=== PATIENT | male | born 1955 | race Caucasian/White ===

== ENCOUNTER 2016-09-05 18:18 | Observation (INO) | payer OTHER ==
[~2016-09-05] VITALS: Ht 177.8 cm; Wt 108.0 kg
--- NOTE | 2016-09-05 19:56 | DIAGNOSTIC IMAGING REPORT ---
PROCEDURE: CT HEAD WITHOUT CONTRAST INDICATION: SLURRED SPEECH AND CONCENTRATION PROBLEMS FOR 2 -3 DAYS TECHNIQUE: Noncontrast axial images with sagittal and coronal reformations. COMPARISON: None. FINDINGS: There is a 1.3 cm low density area in the right anterior thalamus with mild mass effect. The rest of the brain and ventricles are normal. No evidence of hemorrhage. Sinuses and mastoids are normal. IMPRESSION: 1. There is 1.3 cm low density area in the right anterior thalamus most compatible with an acute or subacute infarct. 2. Otherwise negative head CT. 2. Findings discussed with Dr. Shaheen Ding at [address] scans at this facility use dose modulation, iterative reconstruction, and/or weight-based dosing when appropriate to reduce radiation dose to as low as reasonably achievable.
--- NOTE | 2016-09-05 20:54 | ED NURSING NOTES ---
Clinical Report - Nurses [facility] [address] [place] [address] 09/05/2016 18:18 Patient: SONALI COATES TRIAGE Triage time 18:24 Sep 05 2016. Acuity: LEVEL 2. Chief Complaint: DIZZINESS. Alert. No acute distress. DADA COMA SCORE: Dada Coma Scale: 15- eyes open spontaneously (4); best verbal response- oriented x 4 (5); best motor response- obeys commands (6). --18:30 Christiane Shepherd R.N. 18:24 09/05/16. BP: 150/71. HR: 76. RR: 18. O2 saturation: 99%. Temp: 98.3 F. Pain level now 0/10. --18:30 Christiane Shepherd R.N. Weight: 104.3 kg stated. Height/Length: 70 inches Per Patient. BMI: 33. --18:22 Christiane Shepherd R.N. Medications Allopurinol Oral (gout). --18:28 Christiane Shepherd R.N. Ibuprofen Oral, as needed (for arthitis). --18:28 Christiane Shepherd R.N. Medication/allergy information source: the patient. --18:30 Christiane Shepherd R.N. Allergies No Known Drug Allergy. --22:46 Christiane Shepherd R.N. History Arrived by private vehicle. Historian: spouse and patient. Accompanied by spouse. Primary physician (Dr. Anderson). ( brought her in to be seen because since Sunday he has been "not acting right". "he's more tired, speech is slurred at times, unsteady with walking, tripping at times".). This started since Sunday. Patient was last known well (Sunday). He has had trouble walking. Treatment MEDICAL SCIENTIFIC LIAISON: None. SOCIAL HX: Never smoker. Occasional alcohol use. No drug use. No infectious disease exposure. FALL RISK ASSESSMENT: Fall risk assessment completed. No fall risk identified. NUTRITIONAL RISK ASSESSMENT: The nutritional risk assessment revealed no deficiencies. FUNCTIONAL ASSESSMENT: Functional assessment: no impairments noted. LEARNING NEEDS ASSESSMENT: The learning needs assessment revealed no barriers. SKIN INTEGRITY ASSESSMENT: Skin integrity risk assessment completed. No skin integrity risk identified. --18:30 Christiane Shepherd R.N. PROBLEMS: Gout. --18:29 Christiane Shepherd R.N. ADDITIONAL SURGERIES: Appendectomy. Knee Surgery. --18:29 Christiane Shepherd R.N. Interventions ID band on patient. To room. --18:30 Christiane Shepherd R.N. PHYSICAL ASSESSMENT Ambulatory to room. GENERAL / NEURO / PSYCH: Oriented X 4. Appears in no acute distress. Speech within normal limits. HEENT: No facial asymmetry noted. Pupils equal, round and reactive to light. RESPIRATORY: Respirations not labored. CVS: Cardiac rhythm: normal sinus rhythm. Capillary refill less than 2 seconds. SKIN: Skin is warm and dry. --19:09 Christiane Shepherd R.N. GENERAL / NEURO / PSYCH: NIH Stroke Scale: score 1. Performed at 21:15. Level of Consciousness: drowsy (1). LOC Questions: both (0). LOC Commands: both (0). Best gaze: normal (0). Visual field loss: none (0). Facial palsy: normal (0). Motor arm: no drift right arm (0) and no drift left arm (0). Motor leg: no drift right leg (0) and no drift left leg (0). Limb ataxia: none (0). Sensory loss: none (0). Aphasia: none (0). Dysarthria: normal (0). Extinction and inattention: none (0). --21:15 Christiane Shepherd R.N. GENERAL / NEURO / PSYCH: ( falls asleep during conversation with .). --21:15 Christiane Shepherd R.N. NURSING PROGRESS NOTES cardiac monitor technician, pulse oximeter and NIBP monitor placed on patient; cardiac monitor technician- Lead II. Patient gowned. Reassurance given. Patient ready for evaluation- ED physician notified. --18:30 Christiane Shepherd R.N. 18:35 09/05/2016 Site #1 started via IV in the right antecubital space with an 20g angiocath; one attempt. Blood drawn: rainbow set. Labeled in the presence of the patient and sent to the lab. --18:35 Christiane Shepherd R.N. EKG time: (1831). EKG was ordered, performed by a tech and shown to the ED physician. --18:38 Olamide Michel ER Tech1 ( 18:35 Provider at bedside.). --18:47 Christiane Shepherd R.N. Patient waiting for lab results. --19:09 Christiane Shepherd R.N. 19:08 09/05/16. BP: 150/68. HR: 70. RR: 18. O2 saturation: 98%. Pain level now 0/10. --19:09 Christiane Shepherd R.N. ( Pt road tested to CT with tech. Gait steady, just walking slow. pilot supervisor brought pt back to room, spoke with RN and stated pt "seemed confused". Pt assisted to the bathroom, provided a urine specimen.). --19:56 Christiane Shepherd R.N. ( Pt and informed that he has had a stroke, right side, non hemorrhagic. It has been decided that pt will agree to be admitted tonight. Pt did not have any questions or a response to this news. asked a lot of questions and saw the CT scan.). --21:10 Christiane Shepherd R.N. 21:14 09/05/16. BP: 111/92. HR: 78. RR: 18. O2 saturation: 97%. Pain level now 0/10. --21:14 Christiane Shepherd R.N. Cardiac rhythm: normal sinus rhythm. --21:14 Christiane Shepherd R.N. ( house sup infomred of pt's stay.). --21:16 Christiane Shepherd R.N. 21:17 09/05/2016 Aspirin PO 325 mg given. Allergies verified and confirmed 5 rights. --21:17 Christiane Shepherd R.N. DISPOSITION / DISCHARGE Condition at departure: stable. Admitted to Acute Care. Report was given to a nurse. Report included patient's care, treatment, medications, reviewed medication reconcilliation, and condition (including any recent changes or anticipated changes). All questions were answered. Report was acknowledged. (RN). --21:54 Christiane Shepherd R.N. Report was given. (Cat, RN). --22:14 Christiane Shepherd R.N. 22:45 09/05/16. BP: 137/55. HR: 78. RR: 18. O2 saturation: 100%. Pain level now 0/10. --22:46 Christiane Shepherd R.N. Locked/Released at 09/05/2016 22:47 by Christiane Shepherd R.N.
--- NOTE | 2016-09-05 20:54 | ED CLINICAL REPORT ---
Clinical Report - Physicians/Mid Levels [facility] [address] [place] [address] 09/05/2016 18:18 Patient: SONALI COATES Arrived- By private vehicle. Historian- patient. HISTORY OF PRESENT ILLNESS Chief Complaint: confusion. The patient has had difficulty with speech (slight slurring of speech). No visual disturbance, impaired swallowing or recent fall. He has had difficulty walking (possible leg drop on the left). This started 2 days ago, patient was last known well (2 days ago) and is still present (staying the same). It was abrupt in onset and has been constant but is not gone now. At its maximum deficit described as mild. No dizziness, seizure or blackouts. Usually is alert and oriented X3 and has normal mobility. Similar symptoms previously: None. Recent medical care: Not recently seen/assessed. REVIEW OF SYSTEMS No chest pain or difficulty breathing. All systems otherwise negative, except as recorded above. PAST HISTORY See nurses notes. SOCIAL HISTORY Never smoker. Occasional alcohol use. No drug use. Is a local resident. FAMILY HISTORY (father with "heart attack" at 58 years of age). ADDITIONAL NOTES The nursing notes have been reviewed. PHYSICAL EXAM Vital Signs: 09/05/2016 18:24 BP: 150/71. HR: 76. RR: 18. O2 saturation: 99%. Temp: 98.3 F. Hypertensive. Oxygen saturation normal. Appearance: Alert. No acute distress. Head: Head atraumatic. Eyes: Pupils equal, round and reactive to light. Pupillary exam: Right pupil 3mm, round and reactive to light directly and consensually and with accommodation. Left pupil: 3mm, round and reactive to light directly and consensually and with accommodation. ENT: Normal ENT inspection. Airway intact. Pharynx normal. Neck: Normal inspection. Neck supple. CVS: Normal heart rate and rhythm. Heart sounds normal. Pulses normal. Respiratory: No respiratory distress. Breath sounds normal. Abdomen: Soft and nontender. No organomegaly. Skin: Skin warm and dry. Normal skin color. No rash. Normal skin turgor. Extremities: Extremities exhibit normal ROM. No lower extremity edema. Neuro: Alert. Oriented X 3. No alteration in mental status. Not disoriented. Alertness is not decreased. No aphasia. Mood/affect normal. Speech normal. No dysphasia or dysarthria. Cranial nerves normal (as tested). No cerebellar findings. No abnormal finger-nose test. Normal gait. No motor deficit. No weakness. No sensory deficit. No pronator drift. LABS, X-RAYS, AND EKG EKG: No acute process. No acute ischemia. Normal EKG. Normal sinus rhythm. Rate: 72. Normal P waves. Normal MITCH. Normal QRS complex. Normal axis. Normal ST and T waves, QT and QTc. The study has been interpreted contemporaneously. The study has been independently viewed by me. The EKG appears to be a good tracing. CT Head: (PROCEDURE: CT HEAD WITHOUT CONTRAST INDICATION: SLURRED SPEECH AND CONCENTRATION PROBLEMS FOR 2 -3 DAYS TECHNIQUE: Noncontrast axial images with sagittal and coronal reformations. COMPARISON: None. FINDINGS: There is a 1.3 cm low density area in the right anterior thalamus with mild mass effect. The rest of the brain and ventricles are normal. No evidence of hemorrhage. Sinuses and mastoids are normal. IMPRESSION: 1. There is 1.3 cm low density area in the right anterior thalamus most compatible with an acute or subacute infarct. 2. Otherwise negative head CT.). Laboratory Tests: UA-Culture if indicated: (HUGO: 09/05/2016 19:45) ( MsgRcvd 09/05/2016 20:10) Final results Test Result Flag Units (Reference) URINE COLOR YELLOW URINE APPEARANCE CLEAR URINE GLUCOSE NEGATIVE (NEGATIVE) URINE BILIRUBIN NEGATIVE (NEGATIVE) URINE KETONE NEGATIVE (NEGATIVE) URINE SPECIFIC GRAVITY 1.025 (1.010-1.030) URINE PH 6.0 (5.0-8.0) URINE PROTEIN NEGATIVE (NEGATIVE) URINE UROBILINOGEN 1.0 EU/dL (0.2-1.0) URINE NITRITE NEGATIVE (NEGATIVE) URINE BLOOD NEGATIVE (NEGATIVE) URINE LEUK ESTERASE NEGATIVE (NEGATIVE) URINE RBC NONE SEEN rbc/hpf (0-1) URINE WBC RARE wbc/hpf (0-1) URINE EPITHELIAL CELLS RARE EPI/hpf (0-5) URINE BACTERIA NONE SEEN (NONE SEEN) URINE COMMENT CULT NOT INDICATED URINE CULTURES ARE SET-UP BASED ON THE FOLLOWING CRITERIA:POSITIVE NITRITEPOSITIVE LEUKOCYTE ESTERASEGREATER THAN 10 WHITE BLOOD CELLSMODERATE (2+) OR GREATER BACTERIA CBC w Diff: (HUGO: 09/05/2016 18:30) ( [facility] 09/05/2016 19:05) Final results Test Result Flag Units (Reference) WHITE BLOOD COUNT 6.6 K/uL (4.5-11.5) RED BLOOD COUNT 5.09 M/uL (4.50-5.90) HEMOGLOBIN 15.7 gm/dL (13.5-17.5) HEMATOCRIT 45.4 % (41.0-53.0) MEAN CELL VOLUME 89 fL (80-100) MEAN CORPUSCULAR HGB 31 pg (26-34) MEAN CORPUSCULAR HGB CONC 35 g/dL (31-37) RED CELL DISTRIBUTION WIDTH 13.7 % (11.6-14.8) PLATELET COUNT 198 K/uL (150-400) NEUTROPHIL % 68.7 % (50-75) LYMPH % 20.8 L % (25-40) MONO % 7.1 % (3-14) EOSINOPHIL % 2.7 % (0-4) BASOPHIL % 0.7 % (0-2) PT with INR: (HUGO: 09/05/2016 18:30) ( [facility] 09/05/2016 19:08) Final results Test Result Flag Units (Reference) INR 0.9 (0.8-1.2) Low Intensity Therapy: INR 1.5-2.0 PT range 18.5-23.1Mod.Intensity Therapy: INR 2.0-3.0 PT range 23.1-31.5High Intensity Therapy: INR 2.5-3.5 PT range 27.4-35.5High Intensity Therapy 2: INR 3.0-4.0 PT range 31.5-39.3 Urine Drug Screen: (HUGO: 09/05/2016 19:45) ( [facility] 09/05/2016 20:22) Final results Test Result Flag Units (Reference) AMPHETAMINE/METHAMPHETAMINE NEGATIVE (NEGATIVE) BARBITURATE NEGATIVE (NEGATIVE) BENZODIAZEPINE NEGATIVE (NEGATIVE) CANNABINOID NEGATIVE (NEGATIVE) COCAINE NEGATIVE (NEGATIVE) ECSTASY NEGATIVE (NEGATIVE) METHADONE NEGATIVE (NEGATIVE) OPIATE NEGATIVE (NEGATIVE) The urine drug screen is a qualitative screening test fordrug overdose and abuse. All screen results should beconsidered as presumptive.Drugs screened for are as follows:BenzodiazepinesCocaineAmphetamines/MetamphetaminesTHC (Tetrahydrocannabinol)OpiatesBarbituratesEcstasyMethadonePositive results are unconfirmed. For confirmation, notifythe lab for the specimen to be sent to the reference lab.All confirmations must be performed by a differentmethodology.The ingestion of natural herbal and plant productscontaining Ephedra/Ephedra metabolites can produce in urineone or more substances capable of cross reacting withamphetamine/methamphetamine immunoassays. These testsprovide a preliminary result only. A more specificalternative chemical method must be used to obtain aconfirmed analytical result. CMP: (HUGO: 09/05/2016 18:30) ( MsgRcvd 09/05/2016 19:52) Final results Test Result Flag Units (Reference) THYROID STIMULATING HORMONE 1.400 uIU/mL (0.30-3.74) GLUCOSE 121 H mg/dL (70-110) BUN 19 H mg/dL (7-18) CREATININE 1.1 mg/dL (0.6-1.3) Estimated GFR >60 mL/min Estimated GFR- >60 mL/min Note: Persistent reduction over 3 months in eGFR<60 mL/min/1.73 m2 defines CKD. Patients with eGFR values>=60 mL/min/1.73 m2 may also have CKD if evidence ofpersistent proteinuria. Additional information may be foundat www.kidney.org. SODIUM 143 mmol/L (136-145) POTASSIUM 4.4 mmol/L (3.5-5.1) CHLORIDE 106 mmol/L (98-107) CARBON DIOXIDE 27 mmol/L (21-32) CALCIUM 8.8 mg/dL (8.5-10.1) TOTAL PROTEIN 6.9 g/dL (6.4-8.2) ALBUMIN 3.6 g/dL (3.3-5.0) BILIRUBIN, TOTAL 0.5 mg/dL (0.0-1.0) ALKALINE PHOSPHATASE 142 H U/L (46-116) AST (SGOT) 21 U/L (15-37) ALT (SGPT) 38.4 U/L (12-78) . PROGRESS AND PROCEDURES Course of Care: the patient is a pleasant 61-year-old female with past medical history significant for possiblehyperlipidemia presenting for evaluation of confusion andpossibly left foot drop. The patient has no focal neurological examination findingshowever patient's story is somewhat concerning for CVA. Patient will be evaluated with CT scan of the head including laboratory studies. Patient is agreeable to treatment plan. EKG is also been ordered for further evaluation of potential be cardioembolic type of stroke. Patient's CT scan of the head his noted for the findings above. Patientwas counseled in regards to this. Patient will likely need to be admitted to the hospital. Auditory studies have beenordered and are currently pending. We are notified about labhaving difficulty with the patient's blood draw as he is noted to be lipemic. Laboratorywe'll send us the results as soon as they are available. Laboratory studies were significant for the findings above. No other acute abnormalities noted. Had long discussion with patient in regards to admission to the hospital. Patient is agreeable to being monitored and having the workup for acute CVA performed here in the hospital. Spoke to the hospitalist who will accept the patientbut did offerhaving the patient's a stroke evaluation performed as an outpatient. Had a discussion patient in regards to workup as an outpatient. Because of the risks and benefits of doing theworkup as an outpatient versus inpatient, patient agreed to being admitted to the hospital to have the evaluation performed on an inpatient basis. Believe that this is the appropriate plan of care for the patient. Because of the patient's documented new-onset of CVA, patient is not a good outpatient candidate. Discussed with patient workup, diagnosis, and plan of care. All questions have been answered. Patient has been stable throughout his stay here in the emergency department. No other acute abnormalities noted. Patient will be admitted. Prior to patient's departure from the emergency department he is noted to be in theusual state of hisfrom his initial presentation. I also did have a discussion with the patient in regards to TPA and how he is currently not a candidate for this medication. Also discussed with patient said [place] ofCVA and possible outcomes fromthis incidenthere in the emergency department. Encouraged patient tocomply with cholesterol-lowering medications to reduce his future risk of CVA. Critical care performed (60 minutes). Time is exclusive of separately billable procedures. Time includes: direct patient care, patient reassessment, coordination of patient care, interpretation of data (laboratory data), review of patient's medical records, medical consultation, family consultation regarding treatment decisions and documentation of patient care. CLINICAL IMPRESSION acute cerebrovascular accident of the right thalamus hypercholesterolemia. (Electronically signed by Shaheen Ding Dr. 09/10/2016 16:12)
--- NOTE | 2016-09-05 20:54 | ED ORDER SUMMARY ---
..... Patient: SONALI COATES OrderSheet [facility] VisitID: [id number] [address] [place] [address] 61y, M Registration Date/Time: 09/05/2016 ORDER SHEET Weight: 104.3 kg (stated) Allergies: No Known Drug Allergy GENERAL ORDERS: EKG - ER Stat (18:34 09/05/2016 TITOalde R.NIris per protocol) (18:35 LNations ER Tech1) Pork Cutlet Maker (Continuous) (altered mental status) (18:46 09/05/2016 Zeus Magaña) (18:50 SBalde R.N.) CBC w Diff Urgent (18:47 09/05/2016 Zeus Magaña) (Ack 18:53 LNations ER Tech1) (20:00 SRedmond) CMP Urgent (18:47 09/05/2016 Zeus Magaña) (Ack 18:53 LNations ER Tech1) (20:00 SRedmond) UA-Culture if indicated Urgent (18:47 09/05/2016 Zeus Magaña) (Ack 18:53 LNations ER Tech1) (20:00 SRedmond) PT with INR Urgent (18:47 09/05/2016 Zeus Magaña) (Ack 18:53 LNations ER Tech1) (20:01 SRedmond) TSH Urgent (18:47 09/05/2016 Zeus Magaña) (Ack 18:54 LNations ER Tech1) (20:17 ALawrence ER Tech1) Pulse oximeter (18:47 09/05/2016 Zeus Magaña) (18:50 SBalde R.N.) CT Head wo Cont Urgent (19:25 09/05/2016 Zeus Magaña) (Ack 19:29 SRedmond) (19:47 MCampbell) Urine Drug Screen Urgent (19:56 09/05/2016 Zeus Magaña) (Ack 19:59 SRedmond) (20:00 SRedmond) MEDICATION ORDERS: Aspirin PO 325 mg (Do not crush or chew, NOW) (21:11 09/05/2016 Zeus Magaña) (21:17 SBalde R.N.) IV FLUIDS: IV Saline Lock (18:47 09/05/2016 Zeus Magaña) (18:50 Laura Tirado) ORDER SHEET NOTES: [Electronically signed by Christiane Shepherd R.N. (22:47 09/05/2016)] [Electronically signed by Shaheen Ding Dr. (16:12 09/10/2016)] [Electronically locked/signed by Christiane Shepherd R.N. (22:47 09/05/2016)]
--- NOTE | 2016-09-05 20:54 | ED NURSING NOTES ---
Clinical Report - [facility] [address] [place] [address] 09/05/2016 18:18 Patient: SONALI COATES TRIAGE Triage time 18:24 Sep 05 2016. Acuity: LEVEL 2. Chief Complaint: DIZZINESS. Alert. No acute distress. DADA COMA SCORE: Dada Coma Scale: 15- eyes open spontaneously (4); best verbal response- oriented x 4 (5); best motor response- obeys commands (6). --18:30 Christiane Shepherd R.N. 18:24 09/05/16. BP: 150/71. HR: 76. RR: 18. O2 saturation: 99%. Temp: 98.3 F. Pain level now 0/10. --18:30 Christiane Shepherd R.N. Weight: 104.3 kg stated. Height/Length: 70 inches Per Patient. BMI: 33. --18:22 Christiane Shepherd R.N. Medications Allopurinol Oral (gout). --18:28 Christiane Shepherd R.N. Ibuprofen Oral, as needed (for arthitis). --18:28 Christiane Shepherd R.N. Medication/allergy information source: the patient. --18:30 Christiane Shepherd R.N. Allergies No Known Drug Allergy. --22:46 Christiane Shepherd R.N. History Arrived by private vehicle. Historian: spouse and patient. Accompanied by spouse. Primary physician (Dr. Anderson). ( brought her in to be seen because since Sunday he has been "not acting right". "he's more tired, speech is slurred at times, unsteady with walking, tripping at times".). This started since Sunday. Patient was last known well (Sunday). He has had trouble walking. Treatment COOPERAGE SHOP SUPERVISOR: None. SOCIAL HX: Never smoker. Occasional alcohol use. No drug use. No infectious disease exposure. FALL RISK ASSESSMENT: Fall risk assessment completed. No fall risk identified. NUTRITIONAL RISK ASSESSMENT: The nutritional risk assessment revealed no deficiencies. FUNCTIONAL ASSESSMENT: Functional assessment: no impairments noted. LEARNING NEEDS ASSESSMENT: The learning needs assessment revealed no barriers. SKIN INTEGRITY ASSESSMENT: Skin integrity risk assessment completed. No skin integrity risk identified. --18:30 Christiane Shepherd R.N. PROBLEMS: Gout. --18:29 Christiane Shepherd R.N. ADDITIONAL SURGERIES: Appendectomy. Knee Surgery. --18:29 Christiane Shepherd R.N. Interventions ID band on patient. To room. --18:30 Christiane Shepherd R.N. PHYSICAL ASSESSMENT Ambulatory to room. GENERAL / NEURO / PSYCH: Oriented X 4. Appears in no acute distress. Speech within normal limits. HEENT: No facial asymmetry noted. Pupils equal, round and reactive to light. RESPIRATORY: Respirations not labored. CVS: Cardiac rhythm: normal sinus rhythm. Capillary refill less than 2 seconds. SKIN: Skin is warm and dry. --19:09 Christiane Shepherd R.N. GENERAL / NEURO / PSYCH: NIH Stroke Scale: score 1. Performed at 21:15. Level of Consciousness: drowsy (1). LOC Questions: both (0). LOC Commands: both (0). Best gaze: normal (0). Visual field loss: none (0). Facial palsy: normal (0). Motor arm: no drift right arm (0) and no drift left arm (0). Motor leg: no drift right leg (0) and no drift left leg (0). Limb ataxia: none (0). Sensory loss: none (0). Aphasia: none (0). Dysarthria: normal (0). Extinction and inattention: none (0). --21:15 Christiane Shepherd R.N. GENERAL / NEURO / PSYCH: ( falls asleep during conversation with .). --21:15 Christiane Shepherd R.N. NURSING PROGRESS NOTES mud jack operator, pulse oximeter and NIBP monitor placed on patient; cost report clerk- Lead II. Patient gowned. Reassurance given. Patient ready for evaluation- ED physician notified. --18:30 Christiane Shepherd R.N. 18:35 09/05/2016 Site #1 started via IV in the right antecubital space with an 20g angiocath; one attempt. Blood drawn: rainbow set. Labeled in the presence of the patient and sent to the lab. --18:35 Christiane Shepherd R.N. EKG time: (1831). EKG was ordered, performed by a tech and shown to the ED physician. --18:38 Olamide Michel ER Tech1 ( 18:35 Provider at bedside.). --18:47 Christiane Shepherd R.N. Patient waiting for lab results. --19:09 Christiane Shepherd R.N. 19:08 09/05/16. BP: 150/68. HR: 70. RR: 18. O2 saturation: 98%. Pain level now 0/10. --19:09 Christiane Shepherd R.N. ( Pt road tested to CT with tech. Gait steady, just walking slow. cyber incident handler brought pt back to room, spoke with RN and stated pt "seemed confused". Pt assisted to the bathroom, provided a urine specimen.). --19:56 Christiane Shepherd R.N. ( Pt and informed that he has had a stroke, right side, non hemorrhagic. It has been decided that pt will agree to be admitted tonight. Pt did not have any questions or a response to this news. asked a lot of questions and saw the CT scan.). --21:10 Christiane Shepherd R.N. 21:14 09/05/16. BP: 111/92. HR: 78. RR: 18. O2 saturation: 97%. Pain level now 0/10. --21:14 Christiane Shepherd R.N. Cardiac rhythm: normal sinus rhythm. --21:14 Christiane Shepherd R.N. ( house sup infomred of pt's stay.). --21:16 Christiane Shepherd R.N. 21:17 09/05/2016 Aspirin PO 325 mg given. Allergies verified and confirmed 5 rights. --21:17 Christiane Shepherd R.N. DISPOSITION / DISCHARGE Condition at departure: stable. Admitted to Acute Care. Report was given to a nurse. Report included patient's care, treatment, medications, reviewed medication reconcilliation, and condition (including any recent changes or anticipated changes). All questions were answered. Report was acknowledged. (RN). --21:54 Christiane Shepherd R.N. Report was given. (Cat, RN). --22:14 Christiane Shepherd R.N. 22:45 09/05/16. BP: 137/55. HR: 78. RR: 18. O2 saturation: 100%. Pain level now 0/10. --22:46 Christiane Shepherd R.N. Locked/Released at 09/05/2016 22:47 by Christiane Shepherd R.N.
--- NOTE | 2016-09-05 20:54 | ED ORDER SUMMARY ---
..... Patient: SONALI COATES OrderSheet [facility] VisitID: [id number] [address] [place] [address] 61y, M Registration Date/Time: 09/05/2016 ORDER SHEET Weight: 104.3 kg (stated) Allergies: No Known Drug Allergy GENERAL ORDERS: EKG - ER Stat (18:34 09/05/2016 TITOalde R.NIris per protocol) (18:35 LNations ER Tech1) Binding Cementer French Cord (Continuous) (altered mental status) (18:46 09/05/2016 Zeus Magaña) (18:50 SBalde R.N.) CBC w Diff Urgent (18:47 09/05/2016 Zeus Magaña) (Ack 18:53 LNations ER Tech1) (20:00 SRedmond) CMP Urgent (18:47 09/05/2016 Zeus Magaña) (Ack 18:53 LNations ER Tech1) (20:00 SRedmond) UA-Culture if indicated Urgent (18:47 09/05/2016 Zeus Magaña) (Ack 18:53 LNations ER Tech1) (20:00 SRedmond) PT with INR Urgent (18:47 09/05/2016 Zeus Magaña) (Ack 18:53 LNations ER Tech1) (20:01 SRedmond) TSH Urgent (18:47 09/05/2016 Zeus Magaña) (Ack 18:54 LNations ER Tech1) (20:17 ALawrence ER Tech1) Pulse oximeter (18:47 09/05/2016 Zeus Magaña) (18:50 SBalde R.N.) CT Head wo Cont Urgent (19:25 09/05/2016 Zeus Magaña) (Ack 19:29 SRedmond) (19:47 MCampbell) Urine Drug Screen Urgent (19:56 09/05/2016 Zeus Magaña) (Ack 19:59 SRedmond) (20:00 SRedmond) MEDICATION ORDERS: Aspirin PO 325 mg (Do not crush or chew, NOW) (21:11 09/05/2016 Zeus Magaña) (21:17 SBalde R.N.) IV FLUIDS: IV Saline Lock (18:47 09/05/2016 Zeus Magaña) (18:50 Laura Tirado) ORDER SHEET NOTES: [Electronically signed by Christiane Shepherd R.N. (22:47 09/05/2016)] [Electronically signed by Shaheen Ding Dr. (16:12 09/10/2016)] [Electronically locked/signed by Christiane Shepherd R.N. (22:47 09/05/2016)]
[2016-09-05 22:56] VITALS: BP 155/95
--- NOTE | 2016-09-05 23:59 | HISTORY AND PHYSICAL ---
ADMITTED: 09/05/2016 PRIMARY CARE PHYSICIAN: Sandro Anderson MD CHIEF COMPLAINT: 1. Fatigue, slurred speech, weak, discoordinated left arm and left lower extremity HISTORY OF PRESENT ILLNESS: This is a 61-year-old male with history of dyslipidemia, presenting to the hospital with complaints of 3-4 days of fatigue and tiredness, 2 days of slurred speech and left hand discoordination and left foot weakness. The patient states that he started getting extremely fatigued and tired on Sunday, but thought that he had guests over and perhaps the tiredness was from that. The patient was so tired on Sunday that he stayed in bed almost the entire day. They started noticing slurred speech on Sunday in addition to some left hand coordination issues, especially while using a cell phone, and he is left-handed and he felt like he was dragging his left foot. He finally presented, about 24 hours after these symptoms had started, to the emergency department. He denies any headache, blurry vision. He does also admit to not being able to think clearly and connect his thoughts appropriately. The slurred speech is already significantly improved. Per his , it seemed to improve on his way to the hospital. He denies any fevers, chills. The patient denies any coughing or difficulty swallowing over the last 4 days. MEDICAL/SURGICAL HISTORY: Past medical history: Dyslipidemia, gout. Past surgical history: T and A, appendectomy, left knee arthroscopic meniscal repair. MEDICATIONS: 1. Allopurinol 300 mg p.o. daily. 2. Aspirin 81 mg p.o. daily, which he takes very intermittently. ALLERGIES: 1. THE PATIENT GETS HEADACHES FROM CODEINE. 2. HAS DIZZINESS FROM ATORVASTATIN. 3. MEMORY PROBLEMS WITH SIMVASTATIN. SOCIAL HISTORY: The patient is and has 3 children and 2 going on 3 grandchildren. He drinks approximately 3 adult beverages per week. Denies any history or current tobacco use and denies any drug use. He also has no pets. FAMILY HISTORY: Father with heart attack at age 58 and lung cancer as he was a smoker. Mother with high blood pressure, dyslipidemia and breast cancer. Brother with hypertension and dyslipidemia, sister with dyslipidemia, and a maternal grandfather with type 2 diabetes. REVIEW OF SYSTEMS: A full 12-point review of systems was done, it was negative except as per HPI. PHYSICAL EXAMINATION: VITAL SIGNS: Blood pressure on presentation to the emergency department was initially 150/70; however, has decreased to 118/80s when I was in the room. Pulse is in the 60s, respiratory rate is 16, O2 saturation is 96% on room air. GENERAL: This is a healthy-appearing male sitting in bed in no apparent distress. HEENT: Head is atraumatic, normocephalic. Pupils are equal, round, and reactive to light with accommodation bilaterally. Extraocular muscles are intact bilaterally. Oropharynx is nonerythematous without exudates and moist. Tympanic membranes are nonerythematous without exudates and with cones of light bilaterally. Trachea is midline. NECK: There is no JVD. HEART: S1, S2, regular rate and rhythm. No S3, S4, murmurs, gallops, or rubs. LUNGS: Clear to auscultation bilaterally. ABDOMEN: Soft, nontender, nondistended without hepatosplenomegaly or masses. Bowel sounds are active. EXTREMITIES: There is no peripheral edema. The patient has +1 reflexes in upper and lower extremities. He has a normal or negative Babinski sign in bilateral lower extremities. He is slightly weak on his left foot as compared to his right foot in addition to slightly weaker on his left as compared to his right and both his arms and his legs, and this gentleman is left hand dominant. The patient also has normal coordination in his right upper and lower extremities and his left lower extremity; however, has dysarthria with his left upper extremity. NEUROLOGIC: He has no facial droop. Currently, the patient does not seem to have slurred speech. LAB/IMAGING: Laboratories: Sodium is 143, potassium 4.4, chloride is 106, bicarb 27, BUN of 19, creatinine of 1.1, glucose of 121, calcium is 8.8, total protein is 6.9. Albumin of 3.6, total bilirubin of 0.5, alk phos of 142, AST of 21, ALT of 38.4. TSH 1.4. U tox is negative. UA is negative. White blood cell count of 6.6, hemoglobin of 15.7, hematocrit of 45.4, platelets of 198,000. INR of 0.9. CT of the head: Shows a 1.3 cm right anterior thalamus acute versus subacute infarct. Electrocardiogram: Shows sinus rhythm at 72 beats per minute with a QTc of 387 and left atrial enlargement. IMPRESSION: 1. This is a 61-year-old male with the history of dyslipidemia, who has not been taking medications, who likely started having a first-time cerebrovascular accident 4 days ago, but his symptoms have continued to involve up until approximately 24 hours ago. PLAN: 1. Fluids, electrolytes, nutrition: It seems like patient does not have any swallowing issues. We will do a bedside swallow evaluation with nursing. If there is any question about his swallowing abilities he will be made n.p.o. until morning when we can do a formal swallow evaluation. 2. Cardiac. The patient has severe dyslipidemia and has not been taking statin medication due to side effects. We will try another statin medication and see if he tolerates it. If not, we will likely try an alternative cholesterol medication. 3. Neurologic: Right anterior thalamus cerebrovascular accident, acute versus subacute. His blood pressure was borderline high initially this evening, we will monitor his blood pressure closely and if it continues to be high, we will start antihypertensive medications as he is likely through his acute phase of his stroke. As above, we will start on statin medication if at all possible and we will put him on full strength aspirin 325 mg p.o. daily. 4. Prophylaxis: The patient will be eating; if we have to make him n.p.o. we will start gastrointestinal ulcer prophylaxis and we will anticoagulate him with Lovenox 40 mg subcutaneous daily. 5. Code status: The patient is FULL CODE and I did confirm this with him and his this evening. It was a pleasure being involved in the care of this patient. Please do not hesitate to contact me if you have any questions or concerns.
[2016-09-06] MEDS ORDERED: ALLOPURINOL100 MG PO (00:01)
[2016-09-06 02:08] VITALS: BP 113/49
[2016-09-06] MEDS ORDERED: ASPIRIN325 MG PO (02:15)
[2016-09-06 07:09] VITALS: BP 125/73
--- NOTE | 2016-09-06 10:40 | DIAGNOSTIC IMAGING REPORT ---
PROCEDURE: US BILATERAL CAROTID DOPPLER INDICATION: CVA, please perform bubble study TECHNIQUE: Color Doppler duplex imaging of the carotid and vertebral vessels. COMPARISON: None. FINDINGS: Mild intimal thickening bilaterally. Right carotid system: No significant stenosis visualized. The waveforms are normal. Left carotid system: No significant stenosis visualized. The waveforms are normal. Vertebral System: Antegrade vertebral artery flow bilaterally. Right common carotid artery peak systolic velocity 90 cm/second. Right internal carotid artery peak systolic velocity 82 cm/second. Right external carotid artery peak systolic velocity 115 cm/second. Right bwdndztd-zy-uzkwqs carotid artery ratio 0.9 Right vertebral artery peak systolic velocity 41 cm/second. Left common carotid artery peak systolic velocity 94 cm/second. Left internal carotid artery peak systolic velocity 86 cm/second. Left external carotid artery peak systolic velocity 71 cm/second. Left rljbudlw-hs-rgvtmr carotid artery ratio 0.9 Left vertebral artery peak systolic velocity 24 cm/second. IMPRESSION: 1. No hemodynamically significant stenosis in either carotid system. 2. Antegrade vertebral artery flow bilaterally. Velocity criteria are extrapolated from diameter data as defined by the Society of Radiologists in Ultrasound Consensus Conference, Radiology 2003; 229; 340-346.
--- NOTE | 2016-09-06 10:40 | DIAGNOSTIC IMAGING REPORT ---
PROCEDURE: US BILATERAL CAROTID DOPPLER INDICATION: CVA, please perform bubble study TECHNIQUE: Color Doppler duplex imaging of the carotid and vertebral vessels. COMPARISON: None. FINDINGS: Mild intimal thickening bilaterally. Right carotid system: No significant stenosis visualized. The waveforms are normal. Left carotid system: No significant stenosis visualized. The waveforms are normal. Vertebral System: Antegrade vertebral artery flow bilaterally. Right common carotid artery peak systolic velocity 90 cm/second. Right internal carotid artery peak systolic velocity 82 cm/second. Right external carotid artery peak systolic velocity 115 cm/second. Right jwmgwgrj-cd-rxgnlx carotid artery ratio 0.9 Right vertebral artery peak systolic velocity 41 cm/second. Left common carotid artery peak systolic velocity 94 cm/second. Left internal carotid artery peak systolic velocity 86 cm/second. Left external carotid artery peak systolic velocity 71 cm/second. Left nvarnjgv-vh-nnhbfk carotid artery ratio 0.9 Left vertebral artery peak systolic velocity 24 cm/second. IMPRESSION: 1. No hemodynamically significant stenosis in either carotid system. 2. Antegrade vertebral artery flow bilaterally. Velocity criteria are extrapolated from diameter data as defined by the Society of Radiologists in Ultrasound Consensus Conference, Radiology 2003; 229; 340-346.
[2016-09-06 11:24] VITALS: BP 141/68
[2016-09-06] MEDS ORDERED: PRAVACHOL20 MG PO (13:56)
--- NOTE | 2016-09-06 14:01 | Provider's Discharge Care Plan ---
Problem, Goal, Plan Problem List 1. CVA (cerebral vascular accident) Goals: Diagnostic testing, Improve disease control, Improve nutrition status, Learn about illness, Therapeutic intervention Instructions: Follow up as directed, Take meds as directed
--- NOTE | 2016-09-06 17:09 | DIAGNOSTIC IMAGING REPORT ---
REFERRING PHYSICIAN/PROVIDER: Kelli Shah MD CONSULTING HAY BUCKLER: Kelvin Quigley MD PROCEDURE: 2D echo, M-mode and complete color and flow Doppler interrogation TECHNICAL QUALITY: Technically difficult study INDICATION: CVA INTERPRETATIONS: CHAMBERS: LEFT ATRIUM: Normal left atrial size. No bubble study performed. LEFT VENTRICLE: Concentric left ventricular hypertrophy. Normal systolic function, EF visually estimated to be 55%. No wall motion abnormalities. Poor endocardial definition. Indeterminate diastolic function. RIGHT ATRIUM: Normal right atrial size. RIGHT VENTRICLE: Normal right ventricular size and systolic function. VALVES: All valves nonrheumatic unless otherwise indicated. AORTIC VALVE: Trileaflet aortic valve with sclerosis and focal calcification of the right and left coronary cusps. No aortic stenosis. Mild aortic regurgitation with PHT 567 msec. MITRAL VALVE: No mitral stenosis, mean gradient 1 mmHg. Trace mitral regurgitation. TRICUSPID VALVE: Mild tricuspid regurgitation. RVSP is 26 mmHg + RA pressure. PULMONIC VALVE: Mild pulmonic regurgitation. MISCELLANEOUS: No pericardial effusion. AORTA: Normal aorta dimensions. HEMODYNAMICS: Normal IVC size, but unable to visualize inspiratory collapse. IMPRESSION: 1. Concentric left ventricular hypertrophy with normal systolic function, EF 55%. No wall motion abnormalities. Indeterminate diastolic function. 2. Mild aortic regurgitation into a nondilated left ventricle. 3. Normal right ventricular size and systolic function. 4. Estimated pulmonary artery systolic pressure is 26 mmHg + CVP. 5. No pericardial effusion. 6. Unable to exclude intracardiac shunt as bubble study not performed.
--- NOTE | 2016-09-07 21:50 | DISCHARGE SUMMARY ---
ADMIT DATE: 09/05/2016 DISCHARGE DATE: 09/06/2016 ADMISSION DIAGNOSES: 1. Right thalamus cerebrovascular accident 2. Dyslipidemia DISCHARGE DIAGNOSIS: 1. Right thalamus cerebrovascular accident, improving 2. Dyslipidmeia BRIEF HISTORY: This is a 61-year-old male with the history of dyslipidemia, presenting to the hospital with complaints of 3-4 days of fatigue and tiredness, 2 days of slurred speech and left hand coordination and left foot weakness. The patient states that he started getting extremely fatigued and tired on Sunday, but that he had guests over and perhaps the tiredness was from that. The patient was so tired on Sunday that he stayed in bed almost the entire day. They started noticing slurred speech on Sunday in addition to some left foot coordination issues, especially while using his cell phone, and he is left-handed and he felt like he was dragging his left foot. He finally presented about 24 hours after these symptoms had started to the emergency department. He denies any headache, blurry vision. He does also admit to not being able to think clearly and connect his thoughts appropriately. The slurred speech is already significantly improved, per his . It seemed to improve on his way to the hospital. He denies any fevers, chills. The patient denies any coughing or difficulty swallowing over the last 4 days. HOSPITAL COURSE: The patient was admitted to the hospital and monitored overnight. He did not have any cardiac arrhythmias and his weakness on his left side of his body seemed to slowly resolve. The patient saw physical therapy in the morning who did recommend outpatient PT and OT. PHYSICAL EXAMINATION: VITAL SIGNS: At the time of discharge, vital signs are stable. GENERAL: This is a healthy-appearing male lying in bed in no apparent distress. HEENT: Head is atraumatic, normocephalic. Pupils are equal, round, and reactive to light with accommodation bilaterally. HEART: S1, S2, regular rate and rhythm. No S3, S4, murmurs, gallops, or rubs. LUNGS: Clear to auscultation bilaterally. ABDOMEN: Soft, nontender, nondistended without hepatosplenomegaly or masses. Bowel sounds active. EXTREMITIES: There is no peripheral edema. The patient's strength in his left upper extremity has actually significantly improved and the dysmetria is also improving. DISCHARGE INSTRUCTIONS/MEDICATIONS: Discharge plan: The patient was discharged to home with instructions to follow up with his primary care physician within 1 week. The patient was referred to outpatient physical therapy, occupational therapy and speech. Diet: Cardiac, low cholesterol diet. Activity: Up ad edith. Discharge medications: Pravastatin 20 mg p.o. daily, allopurinol 300 mg p.o. daily, aspirin 325 mg p.o. daily. If patient tolerates this dose of the pravastatin we will increase the dose slowly.
--- NOTE | 2016-09-10 16:13 | ED DISCHARGE INSTRUCTIONS ---
Patient: SONALI COATES General Instructions [facility] VisitID: [id number] [address] [place] [address] 61y, M Registration Date/Time: 09/05/2016 acute cerebrovascular accident of the right thalamus hypercholesterolemia. (Electronically signed by Shaheen Ding Dr. 09/10/2016 16:12)
--- NOTE | 2016-09-10 16:13 | ED MED RECONCILIATION SUMMARY ---
Patient: SONALI COATES Medication Reconciliation Report [facility] VisitID: [id number] [address] [place] [address] 61y, M Registration Date/Time: 09/05/2016 Weight: 104.3 kg Height/Length: 70 in. BMI: 33.0 ALLERGIES: No Known Drug Allergy The patient's Home Medications are listed below: THE FOLLOWING MEDICATIONS NEED TO BE RECONCILED: Allopurinol Oral, gout Ibuprofen Oral, for arthitis The source(s) of the original Home Medication information: patient The following Medications were given to the patient in the Emergency Department: Aspirin [PO] PO 325 mg, administered: 09/05/2016 9:17:00 PM The following Medications were prescribed to the patient: None.
--- NOTE | 2016-09-10 16:13 | ED DISCHARGE INSTRUCTIONS ---
Patient: SONALI COATES General Instructions [facility] VisitID: [id number] [address] [place] [address] 61y, M Registration Date/Time: 09/05/2016 acute cerebrovascular accident of the right thalamus hypercholesterolemia. (Electronically signed by Shaheen Ding Dr. 09/10/2016 16:12)
--- NOTE | 2016-09-10 16:13 | ED MAR SUMMARY ---
..... Medication Administration Record [facility] [address] [place] [address] Patient: SONALI COATES Visit ID: [id number] 61y, M Weight: 104.3 kg Height/Length: 70 in BMI: 33 ALLERGIES: No Known Drug Allergy Given 21:17 09/05/2016 Christiane Shepherd R.N. Medication Administered: ASPIRIN [PO], Dose: 325 mg PO. Medication Ordered: Aspirin PO 325 mg (Do not crush or chew, NOW).
--- NOTE | 2016-09-10 16:13 | ED MAR SUMMARY ---
..... Medication Administration Record [facility] [address] [place] [address] Patient: SONALI COATES Visit ID: [id number] 61y, M Weight: 104.3 kg Height/Length: 70 in BMI: 33 ALLERGIES: No Known Drug Allergy Given 21:17 09/05/2016 Christiane Shepherd R.N. Medication Administered: ASPIRIN [PO], Dose: 325 mg PO. Medication Ordered: Aspirin PO 325 mg (Do not crush or chew, NOW).
--- NOTE | 2016-09-10 16:13 | ED MED RECONCILIATION SUMMARY ---
Patient: SONALI COATES Medication Reconciliation Report [facility] VisitID: [id number] [place] [address] 61y, M Registration Date/Time: 09/05/2016 Weight: 104.3 kg Height/Length: 70 in. BMI: 33.0 ALLERGIES: No Known Drug Allergy The patient's Home Medications are listed below: THE FOLLOWING MEDICATIONS NEED TO BE RECONCILED: Allopurinol Oral, gout Ibuprofen Oral, for arthitis The source(s) of the original Home Medication information: patient The following Medications were given to the patient in the Emergency Department: Aspirin [PO] PO 325 mg, administered: 09/05/2016 9:17:00 PM The following Medications were prescribed to the patient: None.
== END 2016-09-06 15:57 | disposition home or self-care (01) ==
LOC: ED SRH 18:18 → ACUTE2 SRH 21:01 → TRANS SRH 21:01 → ACUTE2 SRH 22:45
PROVIDERS: ADMIT Family Medicine
DX: I63.9 Cerebral infarction, unspecified (principal); R47.02 Dysphasia; G81.92 Hemiplegia, unspecified affecting left dominant side; R29.701 NIHSS score 1; E78.00 Pure hypercholesterolemia, unspecified; M10.9 Gout, unspecified
CPT/HCPCS: 29230; 29248; 90004; 90047; 90074; 90100; 91286; 92690; 92760; 92761; 92762; 92763; 92764; 92765; 92766; 92767; 93140; 94060; 95059